=== PATIENT | female | born 1975 | race Asian ===

== ENCOUNTER → 2019-04-24 08:31 | Outpatient (CLI) | payer OTHER, SELFPAY ==
[2019-04-24 10:07] LABS: Alanine Aminotransferase 148 IU/L (9-52); Albumin 4.8 g/dL (3.5-5.0); Albumin Globulin Ratio 1.3 (1.0-2.8); Alkaline Phosphatase 88 U/L (38-126); Aspartate Aminotransferase 105 IU/L (14-36); BUN Creatinine Ratio 26.7 (6-22); Bilirubin Total 0.7 mg/dL (0.2-1.3); Blood Urea Nitrogen 16 mg/dL (7-17); Calcium 9.6 mg/dL (8.4-10.2); Carbon Dioxide 29 mmol/L (22-32); Chloride 102 mmol/L (98-107); Cholesterol 184 mg/dL (140-199); Estimated Glomerular Filt Rate > 60.0 mL/min (>60); Globulin 3.6 g/dL (1.7-4.1); Glucose 99 mg/dL (70-100); HDL Cholesterol 39 mg/dL (40-60); HEMOLYSIS < 15 (0-50); LDL Cholesterol Calculated 103 mg/dL (<100); Potassium 4.6 mmol/L (3.4-5.1); Sodium 142 mmol/L (137-145); Total Protein 8.4 g/dL (6.3-8.2); Triglycerides 209 mg/dL (35-150); Uric Acid 9.2 mg/dL (2.5-6.2)
[2019-04-24 10:14] LABS: Hematocrit 44.6 % (36-46); Hemoglobin 15.2 g/dL (12.0-16.0); Mean Corpuscular Hemoglobin 30.6 PG (26-34); Mean Corpuscular Volume 89.7 fL (80-100); Platelet Count 318 X10^3/uL (150-400); Red Blood Cell Count 4.97 X10^6/uL (4.0-5.2); Red Cell Distribution Width 12.2 % (11.6-14.8); White Blood Cell Count 6.9 X10^3/uL (4.5-11.0)
== END ==
PROVIDERS: PCP Nurse Practitioner Family; Visit Provider Nurse Practitioner Family
DX: Z00.00 Encounter for general adult medical examination without abnormal findings (principal); M10.9 Gout, unspecified; Z13.6 Encounter for screening for cardiovascular disorders
CPT/HCPCS: 36415; 80053; 80061; 84550; 85027

== ENCOUNTER → 2019-04-30 15:05 | Outpatient (CLI) | payer OTHER, SELFPAY ==
--- NOTE | 2019-04-30 15:07 | DI.MG.S_ITS ---
BILATERAL DIGITAL SCREENING MAMMOGRAM 3D/2D WITH CAD: 04/30/2019 CLINICAL: Routine screening. Baseline exam. No prior exams were available for comparison. The tissue of both breasts is heterogeneously dense. This may lower the sensitivity of mammography. Current study was also evaluated with a Computer Aided Detection (CAD) system. No significant masses, calcifications, or other findings are seen in either breast. IMPRESSION: NEGATIVE There is no mammographic evidence of malignancy. A 1 year screening mammogram is recommended. This exam was interpreted at Station ID: [id number]. NOTE: For mammograms, a report in lay terms will be sent to the patient. Approximately 15% of breast malignancies will not be visualized mammographically. In the management of a palpable breast mass, a negative mammogram must not discourage biopsy of a clinically suspicious lesion. Electronically Signed By: Master sharp/estrellita:04/30/2019 17:19:02 letter sent: Normal Exam ACR BI-RADS Category 1: Negative 3341F
== END ==
PROVIDERS: PCP Nurse Practitioner Family; Visit Provider Nurse Practitioner Family
DX: Z12.31 Encounter for screening mammogram for malignant neoplasm of breast (principal)
CPT/HCPCS: 77063; 77067

== ENCOUNTER → 2019-05-28 14:23 | Outpatient (CLI) | payer OTHER, SELFPAY ==
--- NOTE | 2019-05-28 14:25 | DI.US.S_ITS ---
PROCEDURE: US ABDOMEN COMPLETE INDICATIONS: ABNORMAL LIVER ENZYMES TECHNIQUE: Real-time scanning was performed of the abdominal and retroperitoneal organs, with image documentation. COMPARISON: None. FINDINGS: Liver: Liver is diffusely increased in echogenicity. No focal hepatic abnormalities identified. Normal hepatic size. Gallbladder: Phyrgian capped gallbladder; otherwise normal appearance. Biliary ducts: Intrahepatic bile ducts are non-dilated. Extrahepatic bile duct caliber measures 4.0 mm. Normal is 6-7 mm or less in diameter, or 10 mm or less post-cholecystectomy. Pancreas: Visualized portions of the pancreas are sonographically normal. Spleen: Spleen is normal in size and homogeneous in echotexture. Kidneys: Kidneys are normal in size and echotexture. Right kidney measures 10.0 cm long; left kidney measures 10.2 cm long. No hydronephrosis or nephrolithiasis. No solid masses. Aorta: Visualized aorta is normal in caliber at less than 3 cm. Iliacs: Proximal common iliac arteries are normal in caliber at less than 2.5 cm. IVC: Intrahepatic inferior vena cava is patent. Miscellaneous: No free abdominal fluid. IMPRESSION: Increased hepatic echogenicity noted possibly related to hepatic steatosis but other sources of hepatocellular disease cannot be excluded. Recommend clinical correlation. Dictated by: Tha CARY Interpreted: Opal Parikh MD on 05/28/2019 at 16:08 Approved by: Opal Parikh M.D. on 05/28/2019 at 16:35
[2019-05-28 15:27] LABS: TSH w/ Reflex to FT4 2.65 uIU/mL (0.47-4.68)
== END ==
PROVIDERS: PCP Nurse Practitioner Family; Visit Provider Nurse Practitioner Family
DX: R74.8 Abnormal levels of other serum enzymes (principal); N92.1 Excessive and frequent menstruation with irregular cycle
CPT/HCPCS: 36415; 76700; 84443

== ENCOUNTER 2019-08-02 08:45 | Emergency (ER) | payer OTHER, SELFPAY ==
[2019-08-02 09:16] VITALS: BP 123/78; PULSE 115; RESP 24; TEMP 37.6; O2SAT 95
--- NOTE | 2019-08-02 09:19 | DI.RAD.S_ITS ---
PROCEDURE: XR CHEST 2V INDICATIONS: shortness of breath TECHNIQUE: 2 views of the chest were acquired. COMPARISON: None. FINDINGS: Surgical changes and devices: None. Lungs and pleura: Lungs are clear. No pleural effusions or pneumothorax. Mediastinum: Mediastinal contours are normal. Heart size is normal. Bones and chest wall: No suspicious bony abnormalities. Soft tissues appear unremarkable. IMPRESSION: Negative chest. No acute cardiopulmonary process is evident. Dictated by: Hudson Valverde M.D. on 08/02/2019 at 8:54 Approved by: Hudson Valverde M.D. on 08/02/2019 at 9:03
[2019-08-02] MEDS: ALBUTEROL/IPRATROPIUM 3 ML AMPUL INH (09:23)
[2019-08-02 09:24] VITALS: PULSE 113; RESP 18; O2SAT 96
--- NOTE | 2019-08-02 09:36 | ED_ITS ---
HPI - SOB/Dyspnea General Chief Complaint: Shortness of Breath/Dyspnea Stated Complaint: Asthma/headache Time Seen by Provider: 08/02/19 09:17 Source: patient Mode of arrival: Wheelchair Limitations: no limitations History of Present Illness HPI Narrative: Patient is 44-year-old female history of asthma presenting with increasing shortness of breath. It's been ongoing for last 5 days but significantly worse today. She denies any productive cough she does have some chest tightness she overall does not feel well. She has been using her inhaler at home but without any relief. MD Complaint: shortness of breath and cough Onset (ago): day(s) (5) Related Data Home Medications Medication Instructions Recorded Confirmed albuterol sulfate 2.5 mg INHALATION Q4-6H PRN ml 04/16/19 05/21/19 ibuprofen 200 mg tablet 600 mg PO TID PRN tab 04/16/19 05/21/19 Previous Rx's Medication Instructions Recorded albuterol sulfate 90 mcg/actuation 2 inhalation INHALATION Q4-6H PRN 04/16/19 breath activated powder inhaler #1 each colchicine 0.6 mg tablet 0.6 mg PO BID PRN #90 tab 05/07/19 medroxyprogesterone 10 mg tablet See Rx Instructions .ROUTE 06/23/19 .COMPLEX #30 tablet albuterol sulfate 0.63 mg INHALATION QID PRN #75 ml 08/02/19 albuterol sulfate 2 puff INHALATION Q4-6H PRN #8.5 08/02/19 gram prednisone 10 mg PO DAILY #30 tab 08/02/19 Allergies Allergy/AdvReac Type Severity Reaction Status Date / Time acetaminophen [From Tylenol] AdvReac Intermediate Elevated Verified 05/21/19 15:12 liver enzymes allopurinol AdvReac Intermediate Elevated Verified 05/21/19 15:12 liver enzymes Review of Systems Review of Systems Narrative: GENERAL: Denies chills, fatigue, malaise, fever, sweats, travel HEENT: Denies sinus pain, ear pain, sore throat, difficulty swallowing, neck pain RESPIRATORY: See HPI CARDIOVASCULAR: Denies chest pain, palpitations, orthopnea, edema GASTROINTESTINAL: Denies nausea, vomiting, abdominal pain, diarrhea, constipation, melena. : Denies dysuria, frequency, incontinence, hematuria, urinary retention, flank pain. MUSCULOSKELETAL: Denies weakness, joint pain, or bony pain SKIN: No rash, no erythema, no pruritus NEUROLOGIC: Denies weakness, dizziness, headache, numbness, change in speech, confusion PSYCHIATRIC: No concerning psychosocial issues. 12 point review of systems is negative except for those stated above and HPI Patient History Medical History Abnormal liver enzymes (Acute 2017) Acne (Chronic ~2011) BMI 31.0-31.9,adult (Acute) Gout (Acute 2014) Irregular menses (Acute 1990) Migraine (Acute) Mild asthma (Acute 1995) Mixed hyperlipidemia (Acute 04/2019) Surgical History Anesthesia (Resolved) History of toe surgery (Resolved ~2001) Family History Mother Asthma Sister Asthma Grandfather Liver damage Grandmother Parkinson's disease Social History Smoking Status: Never smoker second hand exposure: No alcohol intake: never substance use type: does not use Smoking Status: Never smoker alcohol intake frequency: 0-2 drinks per day Substance Use Type: does not use Exam Initial Vital Signs Initial Vital Signs: Vital Signs Temperature 99.7 F H 08/02/19 09:16 Pulse Rate 115 H 08/02/19 09:16 Respiratory Rate 24 08/02/19 09:16 Blood Pressure 123/78 08/02/19 09:16 Pulse Oximetry 95 08/02/19 09:16 GENERAL: Well-appearing, well-nourished and in no acute distress. HEENT: Head atraumatic,EOMI, pupils reactive CARDIOVASCULAR: Regular rate and rhythm without murmurs, rubs or gallops. RESPIRATORY: Wheezing bilaterally ABDOMEN: Soft, nontender. Normoactive bowel sounds all 4 quadrants. No guarding or rebound. EXTREMITIES: Normal range of motion, no clubbing or edema. Neurovascularly intact NEUROLOGICAL: Alert and oriented x4.Normal gait and speech. Cranial nerves II through XII grossly intact. SKIN: Warm, dry, no laceration, no petechiae, no rashes or lesions. Course Orders Ordered: ED Orders 08/02/19 09:19 XR chest 2V Stat Measure peak expiratory flow ONCE RT Consult Eval and Treat Now 08/02/19 10:05 B Type Natriuretic Peptide Stat Complete Blood Count AUTO DIFF Stat Comprehensive Metabolic Panel Stat Flu test [Influenza A & B (PCR)] Stat Troponin & CK Cardiac Panel Stat Discontinued Medications Albuterol/Ipratropium (Duoneb) 3 ml INH NOW ONE Stop: 08/02/19 09:20 Last Admin: 08/02/19 09:23 Dose: 3 ml Documented by: LUIS Sodium Chloride (Normal Saline 0.9%) 1,000 mls @ 1,000 mls/hr IV BOLUS ONE Stop: 08/02/19 10:35 Last Admin: 08/02/19 10:41 Dose: 1,000 mls/hr Documented by: CLEMENTE Methylprednisolone (Solu-Medrol 125 Mg Vial) 125 mg IV NOW ONE Stop: 08/02/19 09:37 Last Admin: 08/02/19 10:41 Dose: 125 mg Documented by: CLEMENTE Vital Signs Vital signs: Vital Signs - 8 hr 08/02/19 09:16 08/02/19 09:24 08/02/19 11:28 Temperature 99.7 F H Pulse Rate 115 H 113 H Respiratory Rate 24 18 Blood Pressure 123/78 125/69 Pulse Oximetry 95 96 98 MDM - SOB/Dyspnea Lab Data Attestation: I reviewed the patient's lab results. Result diagrams: 08/02/19 10:05 08/02/19 10:05 Labs: Lab Results 08/02/19 08/02/19 08/02/19 Range/Units 10:05 10:05 10:05 WBC 22.2 H (4.5-11.0) X10^3/uL RBC 4.62 (4.0-5.2) X10^6/uL Hgb 14.1 (12.0-16.0) g/dL Hct 41.7 (36-46) % MCV 90.2 (80-100) fL MCH 30.5 (26-34) PG MCHC 33.8 (30-36) % RDW 12.4 (11.6-14.8) % Plt Count 328 (150-400) X10^3/uL Neut % (Auto) 84.1 H (50-75) % Lymph % (Auto) 7.7 L (25-40) % Mariposa % (Auto) 7.1 (3-14) % Eos % (Auto) 0.6 L (2-4) % Baso % (Auto) 0.5 (0-2) % Neut # (Auto) 78687 H (0632-4058) /uL Lymph # (Auto) 1700 (0520-4225) /uL Mariposa # (Auto) 1600 H (0-900) /uL Eos # (Auto) 100 (0-450) /uL Baso # (Auto) 100 (0-100) /uL Sodium 138 (137-145) mmol/L Potassium 4.7 (3.4-5.1) mmol/L Chloride 103 (98-107) mmol/L Carbon Dioxide 23 (22-32) mmol/L BUN 11 (7-17) mg/dL Creatinine 0.50 L (0.52-1.04) mg/dL Estimated GFR > 60.0 (>60) mL/min BUN/Creatinine Ratio 22.0 (6-22) Glucose 120 H (70-100) mg/dL Calcium 9.5 (8.4-10.2) mg/dL Total Bilirubin 1.3 (0.2-1.3) mg/dL AST 77 H (14-36) IU/L ALT 65 H (<35) IU/L Alkaline Phosphatase 89 (38-126) U/L Total Creatine Kinase 221 H (30-135) U/L CK-MB (CK-2) 1.59 (<2.37) ng/mL CK-MB (CK-2) Rel Index 0.7 L (1.5-5.0) % Troponin I < 0.012 (0.01-0.034) ng/mL B-Natriuretic Peptide < 100 (<100) Total Protein 8.8 H (6.3-8.2) g/dL Albumin 4.9 (3.5-5.0) g/dL Globulin 3.9 (1.7-4.1) g/dL Albumin/Globulin Ratio 1.3 (1.0-2.8) Influenza A (RT-PCR) Flu a negative (NEGATIVE) Influenza B (RT-PCR) Flu b negative (NEGATIVE) Imaging Data Chest x-ray: Radiologist's Impression: PROCEDURE: XR CHEST 2V INDICATIONS: shortness of breath TECHNIQUE: 2 views of the chest were acquired. COMPARISON: None. FINDINGS: Surgical changes and devices: None. Lungs and pleura: Lungs are clear. No pleural effusions or pneumothorax. Mediastinum: Mediastinal contours are normal. Heart size is normal. Bones and chest wall: No suspicious bony abnormalities. Soft tissues appear unremarkable. IMPRESSION: Negative chest. No acute cardiopulmonary process is evident. Dictated by: Hudson Valverde M.D. on 08/02/2019 at 8:54 ECG Data Attestation: I personally reviewed and interpreted this ECG as follows: Prior ECG tracings: not available for review Interpretation: Sinus rhythm noted rate 110 and p.r. interval 171 QRS 83 his QTC 384 T-wave inversion noted in lead 2 3 and AVF no priors to compare Q-wave noted in lead 3 MDM Narrative Medical decision making narrative: The patient has obvious wheezing history of asthma her breathing did improve with albuterol. Likely asthma exacerbation. She does have leukocytosis but is afebrile, at this time no indication for antibiotics chest x-ray is clear. Discharge Plan Departure Patient Disposition: Home Clinical Impression: Asthma exacerbation Qualifiers: Asthma severity: moderate Asthma persistence: persistent Qualified Code(s): J45.41 - Moderate persistent asthma with (acute) exacerbation Discharge Date/Time: 08/02/19 11:28 Instructions: DI for Asthma -- Adult Activity Restrictions/Additional Instructions: *You have been diagnosed with asthma exacerbation with viral infection *What to do: At this time no indication for antibiotics *Continue to take medications as directed--> SENT TO [facility] Albuterol inhaler or nebulizer every 4 hours if needed for coughing or shortness of Prednisone 40 mg once a day for 3 days, 30 mg once a day for 3 days, 20 mg once a day for 3 days and 10 mg once a day for 3 days *Follow up with your primary care provider in 2-3 days *Return to ER if you should have increasing chest pain shortness of breath, or any new, worsening or concerning symptoms Prescriptions: New prednisone 10 mg tablet 10 mg PO DAILY Qty: 30 RF: 0 albuterol sulfate 0.63 mg/3 mL solution for nebulization 0.63 mg INHALATION QID PRN (Reason: shortness of breath or wheezing) Qty: 75 RF: 0 albuterol sulfate 90 mcg/actuation HFA aerosol inhaler 2 puff INHALATION Q4-6H PRN (Reason: shortness of breath or wheezing) Qty: 8.5 RF: 0 No Action medroxyprogesterone 10 mg tablet See Rx Instructions .ROUTE .COMPLEX Qty: 30 RF: 3 albuterol sulfate 2.5 mg /3 mL (0.083 %) solution for nebulization 2.5 mg INHALATION Q4-6H PRNRF: 0 ibuprofen 200 mg tablet 600 mg PO TID PRNRF: 0 albuterol sulfate 90 mcg/actuation aerosol powdr breath activated 2 inhalation INHALATION Q4-6H PRN (Reason: shortness of breath or wheezing) Qty: 1 RF: 3 colchicine 0.6 mg tablet 0.6 mg PO BID PRN (Reason: gout flare) Qty: 90 RF: 0 Referrals: Richelle Rosario ARNP [Primary Care Provider] -
[2019-08-02 10:21] LABS: Add Manual Diff / Slide Review NO; Basophils Absolute Auto 100 /uL (0-100); Basophils Percent Auto 0.5 % (0-2); Eosinophils Absolute Auto 100 /uL (0-450); Eosinophils Percent Auto 0.6 % (2-4); Hematocrit 41.7 % (36-46); Hemoglobin 14.1 g/dL (12.0-16.0); Lymphocytes Absolute Auto 1700 /uL (1100-4500); Lymphocytes Percent Auto 7.7 % (25-40); Mean Corpuscular HGB Conc 33.8 % (30-36); Mean Corpuscular Hemoglobin 30.5 PG (26-34); Mean Corpuscular Volume 90.2 fL (80-100); Monocytes Absolute Auto 1600 /uL (0-900); Monocytes Percent Auto 7.1 % (3-14); Neutrophils Absolute Auto 18600 /uL (1500-7000); Neutrophils Percent Auto 84.1 % (50-75); Platelet Count 328 X10^3/uL (150-400); Red Blood Cell Count 4.62 X10^6/uL (4.0-5.2); Red Cell Distribution Width 12.4 % (11.6-14.8); White Blood Cell Count 22.2 X10^3/uL (4.5-11.0)
[2019-08-02 10:40] LABS: Alanine Aminotransferase 65 IU/L (<35); Albumin 4.9 g/dL (3.5-5.0); Albumin Globulin Ratio 1.3 (1.0-2.8); Alkaline Phosphatase 89 U/L (38-126); Aspartate Aminotransferase 77 IU/L (14-36); Bilirubin Total 1.3 mg/dL (0.2-1.3); Blood Urea Nitrogen 11 mg/dL (7-17); Calcium 9.5 mg/dL (8.4-10.2); Carbon Dioxide 23 mmol/L (22-32); Chloride 103 mmol/L (98-107); Creatine Kinase 221 U/L (30-135); Estimated Glomerular Filt Rate > 60.0 mL/min (>60); Globulin 3.9 g/dL (1.7-4.1); Glucose 120 mg/dL (70-100); HEMOLYSIS 141 (0-50); Potassium 4.7 mmol/L (3.4-5.1); Sodium 138 mmol/L (137-145); Total Protein 8.8 g/dL (6.3-8.2)
[2019-08-02] MEDS: SODIUM CHLORIDE 0.9% 1,000 ML 1000 ML IV (10:41)
[2019-08-02] MEDS: methylPREDNISolone 125 MG/2 ML VIAL IV (10:41)
[2019-08-02 10:48] LABS: Troponin I < 0.012 ng/mL (0.01-0.034)
[2019-08-02 10:50] LABS: B Type Natriuretic Peptide < 100 (<100)
[2019-08-02 10:56] LABS: CKMB % Relative Index 0.7 % (1.5-5.0); Creatine Kinase MB 1.59 ng/mL (<2.37)
[2019-08-02 11:28] VITALS: BP 125/69; O2SAT 98
[2019-08-02 11:49] LABS: Influenza A - CEPHEID Flu A NEGATIVE (NEGATIVE); Influenza B - CEPHEID Flu B NEGATIVE (NEGATIVE)
== END 2019-08-02 11:28 | disposition home or self-care (01) ==
PROVIDERS: Emergency Provider Emergency Medicine; PCP Nurse Practitioner Family
DX: J45.41 Moderate persistent asthma with (acute) exacerbation (principal); R07.9 Chest pain, unspecified
CPT/HCPCS: 36415; 71046; 80053; 82550; 82553; 83880; 84484; 85025; 87502; 93005; 94150; 94640; 96361; 96374; 99284; 99285; J2930

== ENCOUNTER → 2019-08-20 15:44 | Outpatient (CLI) | payer OTHER, SELFPAY ==
[2019-08-20 16:06] LABS: Add Manual Diff / Slide Review NO; Basophils Absolute Auto 100 /uL (0-100); Basophils Percent Auto 1.2 % (0-2); Eosinophils Absolute Auto 400 /uL (0-450); Eosinophils Percent Auto 3.6 % (2-4); Hematocrit 43.2 % (36-46); Hemoglobin 14.7 g/dL (12.0-16.0); Lymphocytes Absolute Auto 2800 /uL (1100-4500); Lymphocytes Percent Auto 22.9 % (25-40); Mean Corpuscular HGB Conc 34.1 % (30-36); Mean Corpuscular Hemoglobin 31.2 PG (26-34); Mean Corpuscular Volume 91.3 fL (80-100); Monocytes Absolute Auto 1300 /uL (0-900); Monocytes Percent Auto 10.9 % (3-14); Neutrophils Absolute Auto 7500 /uL (1500-7000); Neutrophils Percent Auto 61.4 % (50-75); Platelet Count 348 X10^3/uL (150-400); Red Blood Cell Count 4.72 X10^6/uL (4.0-5.2); White Blood Cell Count 12.2 X10^3/uL (4.5-11.0)
[2019-08-20 16:36] LABS: Alanine Aminotransferase 48 IU/L (<35); Albumin 4.6 g/dL (3.5-5.0); Albumin Globulin Ratio 1.4 (1.0-2.8); Alkaline Phosphatase 106 U/L (38-126); Aspartate Aminotransferase 43 IU/L (14-36); BUN Creatinine Ratio 23.3 (6-22); Bilirubin Total 0.6 mg/dL (0.2-1.3); Blood Urea Nitrogen 14 mg/dL (7-17); Carbon Dioxide 28 mmol/L (22-32); Chloride 103 mmol/L (98-107); Estimated Glomerular Filt Rate > 60.0 mL/min (>60); Globulin 3.3 g/dL (1.7-4.1); Glucose 71 mg/dL (70-100); HEMOLYSIS < 15 (0-50); Potassium 4.4 mmol/L (3.4-5.1); Sodium 138 mmol/L (137-145); Total Protein 7.9 g/dL (6.3-8.2)
[2019-08-22 16:03] LABS: Hep C Virus Ab w/Reflex Quant NEGATIVE s/c (NEGATIVE)
[2019-08-24 15:21] LABS: Hepatitis A Antibody IgM Nonreactive (Nonreactive)
== END ==
PROVIDERS: PCP Nurse Practitioner Family; Visit Provider Nurse Practitioner Family
DX: D72.829 Elevated white blood cell count, unspecified (principal); R74.8 Abnormal levels of other serum enzymes
CPT/HCPCS: 36415; 80053; 85025; 86709; 86803

== ENCOUNTER → 2020-01-03 08:06 | Outpatient (CLI) | payer OTHER, SELFPAY ==
[2020-01-03 08:32] LABS: Hemoglobin 15.1 g/dL (12.0-16.0); Mean Corpuscular HGB Conc 33.5 % (30-36); Mean Corpuscular Hemoglobin 29.7 PG (26-34); Mean Corpuscular Volume 88.6 fL (80-100); Platelet Count 311 X10^3/uL (150-400); Red Blood Cell Count 5.07 X10^6/uL (4.0-5.2); Red Cell Distribution Width 12.1 % (11.6-14.8); White Blood Cell Count 9.4 X10^3/uL (4.5-11.0)
[2020-01-03 08:54] LABS: Alanine Aminotransferase 175 IU/L (<35); Albumin 4.7 g/dL (3.5-5.0); Albumin Globulin Ratio 1.3 (1.0-2.8); Alkaline Phosphatase 102 U/L (38-126); Aspartate Aminotransferase 139 IU/L (14-36); BUN Creatinine Ratio 26.7 (6-22); Bilirubin Total 0.5 mg/dL (0.2-1.3); Blood Urea Nitrogen 16 mg/dL (7-17); Calcium 9.8 mg/dL (8.4-10.2); Carbon Dioxide 25 mmol/L (22-32); Chloride 102 mmol/L (98-107); Estimated Glomerular Filt Rate > 60.0 mL/min (>60); Globulin 3.6 g/dL (1.7-4.1); Glucose 110 mg/dL (70-100); HEMOLYSIS < 15 (0-50); Potassium 4.5 mmol/L (3.4-5.1); Sodium 136 mmol/L (137-145); Total Protein 8.3 g/dL (6.3-8.2)
== END ==
PROVIDERS: PCP Nurse Practitioner Family; Referring Provider Nurse Practitioner Family; Visit Provider Nurse Practitioner Family
DX: R74.8 Abnormal levels of other serum enzymes (principal); D72.829 Elevated white blood cell count, unspecified
CPT/HCPCS: 36415; 80053; 85027

== ENCOUNTER → 2020-01-05 16:00 | Outpatient (CLI) | payer OTHER, SELFPAY ==
[2020-01-05 16:17] LABS: Cholesterol 199 mg/dL (140-199); HDL Cholesterol 37 mg/dL (40-60); LDL Cholesterol Calculated 107 mg/dL (<100); Triglycerides 274 mg/dL (35-150)
== END ==
PROVIDERS: PCP Nurse Practitioner Family; Visit Provider Nurse Practitioner Family
DX: Z13.6 Encounter for screening for cardiovascular disorders (principal); R73.01 Impaired fasting glucose; E78.2 Mixed hyperlipidemia
CPT/HCPCS: 80061; 83036

== ENCOUNTER → 2020-03-15 10:55 | Outpatient (CLI) | payer OTHER, SELFPAY ==
[2020-03-16 06:45] LABS: COVID19 Sendout Not Detected (Not Detect)
== END ==
PROVIDERS: PCP Nurse Practitioner Family; Visit Provider Nurse Practitioner
DX: Z11.59 Encounter for screening for other viral diseases (principal)
CPT/HCPCS: 87635

== ENCOUNTER → 2020-04-19 10:28 | Outpatient (CLI) | payer OTHER, SELFPAY ==
[2020-04-19 11:55] LABS: Cholesterol 202 mg/dL (140-199); HDL Cholesterol 39 mg/dL (40-60); Triglycerides 417 mg/dL (35-150)
== END ==
PROVIDERS: PCP Nurse Practitioner Family; Referring Provider Nurse Practitioner Family; Visit Provider Internal Medicine Cardiovascular Disease
DX: Z13.6 Encounter for screening for cardiovascular disorders (principal); E78.1 Pure hyperglyceridemia; E78.2 Mixed hyperlipidemia
CPT/HCPCS: 36415; 80061

== ENCOUNTER → 2020-04-20 08:09 | Outpatient (CLI) | payer OTHER, SELFPAY ==
[2020-04-21 20:01] LABS: COVID19 Sendout Not Detected (Not Detect)
== END ==
PROVIDERS: PCP Nurse Practitioner Family; Visit Provider Physician Assistant
DX: Z11.59 Encounter for screening for other viral diseases (principal)
CPT/HCPCS: 87635

== ENCOUNTER → 2020-07-14 09:59 | Outpatient (CLI) | payer OTHER, SELFPAY ==
[2020-07-14 11:01] LABS: Cholesterol 215 mg/dL (140-199); HDL Cholesterol 50 mg/dL (40-60); LDL Cholesterol Calculated 129 mg/dL (<100); Triglycerides 181 mg/dL (35-150)
== END ==
PROVIDERS: PCP Nurse Practitioner Family; Referring Provider Nurse Practitioner Family; Visit Provider Nurse Practitioner Family
DX: E78.2 Mixed hyperlipidemia (principal); Z13.6 Encounter for screening for cardiovascular disorders
CPT/HCPCS: 36415; 80061

== ENCOUNTER → 2020-08-11 11:57 | Outpatient (CLI) | payer OTHER, SELFPAY ==
--- NOTE | 2020-08-11 | DI.MG.S_ITS ---
BILATERAL DIGITAL SCREENING MAMMOGRAM 3D/2D WITH CAD: 08/11/2020 CLINICAL: Routine screening. Comparison is made to exam dated: 04/30/2019 [facility]. The tissue of both breasts is heterogeneously dense. This may lower the sensitivity of mammography. Current study was also evaluated with a Computer Aided Detection (CAD) system. No significant masses, calcifications, or other findings are seen in either breast. There has been no significant interval change. IMPRESSION: NEGATIVE There is no mammographic evidence of malignancy. A 1 year screening mammogram is recommended. This exam was interpreted at Station ID: [id number]. NOTE: For mammograms, a report in lay terms will be sent to the patient. Approximately 15% of breast malignancies will not be visualized mammographically. In the management of a palpable breast mass, a negative mammogram must not discourage biopsy of a clinically suspicious lesion. Electronically Signed By: Hipolito bird/estrellita:08/11/2020 13:26:21 letter sent: Normal Exam ACR BI-RADS Category 1: Negative 3341F
== END ==
PROVIDERS: PCP Nurse Practitioner Family; Referring Provider Nurse Practitioner Family; Visit Provider Nurse Practitioner Family
DX: Z12.31 Encounter for screening mammogram for malignant neoplasm of breast (principal)
CPT/HCPCS: 77063; 77067

== ENCOUNTER → 2020-12-15 08:34 | Outpatient (CLI) | payer OTHER, SELFPAY ==
[2020-12-15 09:22] LABS: Hemoglobin 13.6 g/dL (12.0-16.0); Mean Corpuscular HGB Conc 33.3 % (30-36); Mean Corpuscular Hemoglobin 30.2 PG (26-34); Mean Corpuscular Volume 90.8 fL (80-100); Platelet Count 315 X10^3/uL (150-400); Red Blood Cell Count 4.51 X10^6/uL (4.0-5.2); Red Cell Distribution Width 12.2 % (11.6-14.8); White Blood Cell Count 8.2 X10^3/uL (4.5-11.0)
[2020-12-15 09:53] LABS: Alanine Aminotransferase 152 IU/L (<35); Albumin 4.2 g/dL (3.5-5.0); Albumin Globulin Ratio 1.3 (1.0-2.8); Alkaline Phosphatase 93 U/L (38-126); Aspartate Aminotransferase 130 IU/L (14-36); Bilirubin Total 0.7 mg/dL (0.2-1.3); Blood Urea Nitrogen 18 mg/dL (7-17); Calcium 9.3 mg/dL (8.4-10.2); Carbon Dioxide 25 mmol/L (22-32); Chloride 104 mmol/L (98-107); Cholesterol 201 mg/dL (140-199); Estimated Glomerular Filt Rate > 60.0 mL/min (>60); Globulin 3.3 g/dL (1.7-4.1); Glucose 97 mg/dL (70-100); HDL Cholesterol 44 mg/dL (40-60); LDL Cholesterol Calculated 108 mg/dL (<100); Sodium 136 mmol/L (137-145); Total Protein 7.5 g/dL (6.3-8.2); Triglycerides 247 mg/dL (35-150)
[2020-12-15 09:57] LABS: HEMOLYSIS 61 (0-50)
[2020-12-15 09:58] LABS: Potassium 5.1 mmol/L (3.4-5.1)
== END ==
PROVIDERS: PCP Nurse Practitioner Family; Referring Provider Nurse Practitioner Family; Visit Provider Nurse Practitioner Family
DX: J45.40 Moderate persistent asthma, uncomplicated (principal); R74.8 Abnormal levels of other serum enzymes; E78.2 Mixed hyperlipidemia
CPT/HCPCS: 36415; 80053; 80061; 85027

== ENCOUNTER → 2021-04-19 15:05 | Outpatient (CLI) | payer OTHER, SELFPAY ==
[2021-04-19 16:16] LABS: COVID19 -Nasal RAPID Negative (Negative)
== END ==
PROVIDERS: PCP Nurse Practitioner Family; Visit Provider Specialist
DX: Z01.812 Encounter for preprocedural laboratory examination (principal); Z20.822 Contact with and (suspected) exposure to COVID-19
CPT/HCPCS: 87635

== ENCOUNTER 2021-04-20 09:53 | Day surgery (SDC) | payer OTHER, SELFPAY ==
[2021-04-19 07:42] VITALS: BMI 30.5
[2021-04-20] VITALS (8 sets, daily range): BP systolic 87–122; BP diastolic 50–83; PULSE 57–71; RESP 8–20; TEMP 36.1–36.8; O2SAT 94–97; BMI 30.5
--- NOTE | 2021-04-20 | PATH_ITS ---
[facility] Accession Number: [id number] . 01 Material submitted: . PART A: cervix - EXTERNAL CERVICAL OS PART B: cervix - INTERNAL CERVICAL OS PART C: endocervix - ENDOCERVICAL CURETTINGS . 01 Clinical history: . LEEP . 01 Diagnosis: A. External Cervical Os, LEEP: Cervical transformation zone with focal involvement by high-grade squamous intraepithelial lesion (MATT-2). Margins appear free of neoplasm. No evidence of malignancy. . B. Internal Cervical Os, LEEP: Endocervical mucosa with no diagnostic abnormality. No evidence of squamous intraepithelial lesion or malignancy. . C. Endocervix, Curettage: Endocervical and scant squamous mucosa with no diagnostic abnormality. Weakly proliferative endometrium with no diagnostic abnormality. No evidence of neoplasm. [facility] 04/25/2021 1450 Local . 01 Electronically signed: . Toan Nettles MD, PhD, Pathologist NPI- [id number] . 01 Gross description: . A. The specimen is received in formalin, labeled external cervical os, and consists of a 2.5 x 1.7 cm, cai-pink, smooth portion of ectocervix excised to a depth of 0.3 cm, with a 0.6 x 0.1 cm os. The endocervical margin is inked blue. The ectocervical margin is inked black. The specimen is radially sectioned and entirely submitted in cassettes A1 A4. B. The specimen is received in formalin, labeled internal cervical os, and consists of three cai fragments of soft tissue measuring 2.0 x 1.0 x 0.3 cm in aggregate. The margins are inked blue. The fragments are serially sectioned, and the specimen is entirely submitted in cassettes B1-B2. C. The specimen is received in formalin, labeled endocervical curettings, and consists of multiple cai-pink fragments of soft tissue admixed with mucus and clotted blood measuring 2.0 x 1.0 x 0.2 cm in aggregate. The specimen is filtered and entirely submitted in cassettes B1. (EA:[id number]) /FRR 04/21/2021 1406 Local . 01 Microscopic: . A) A p16 immunohistochemical stain is performed (Block A3) to evaluate for a high risk HPV driven neoplasm, and highlights a small focus of diffuse nuclear and cytoplasmic block-like staining. A control stain shows appropriate reactivity. . * This test was developed and its performance characteristics determined by [facility]. It has not been cleared or approved by the U.S. Food and Drug Administration. The FDA has determined that such clearance or approval is not necessary. This test is used for clinical purposes. It should not be regarded as investigational or for research. . 01 Pathologist provided ICD-10: N87.1 . 01 CPT . 193268, 503656, 657167, S17550 Performed at: 01 [facility] [address] [place] [address], [place], [place] [id number] MD Hipolito Bell MD Phone: [phone]
[2021-04-20] MEDS: LACTATED RINGERS 1,000 ML 100 ML IV (10:53)
--- NOTE | 2021-04-20 11:38 | PM.PREOP ---
Pre-operative Note COVID-19 COVID-19 status: Negative Result date/Date tested (Pos, Neg/Pending): 04/19/21 Interval Note History & Physical reviewed/Exam performed by Physician: Yes Changes to H&P: No
--- NOTE | 2021-04-20 12:17 | SUR.OPER ---
Lithotomy on padded OR bed, head on pillow, arms secured on padded arm boards at <90 degrees abduction. Legs secured in padded yellow fins stirrups.
[2021-04-20] MEDS: BUPIVACAINE 0.5% (PF) VIAL 30 ML INJ (12:21)
[2021-04-20] MEDS: POTASSIUM IODIDE/IODINE 473 ML SOLUTION TOP (12:21)
--- NOTE | 2021-04-20 12:49 | PM.OP.1 ---
Operative Date/Time/Diagnoses Date of procedure: 04/20/21 Time of procedure: 12:49 Pre-op diagnosis: MATT 2 of the cervix on colpo directed biopsies with positive high-risk HPV Post-op diagnosis: same Procedure & Clinicians Procedure: LEEP Same procedure as scheduled: Yes Indications: MATT 2 the cervix by colpo directed biopsies Surgeon: Vee Vazquez Click Yes if Unassisted: Yes Anesthesia Type: General Operative Notes Findings: No staining of the cervix. Closure Type: not applicable Specimen(s): other (External biopsy, internal biopsy, ECC) Estimated Blood Loss (mL): 1 Blood products transfused: none Procedure in detail: Patient was brought to the operating room where she underwent general anesthesia. She was placed in low Yellofin stirrups and draped. A coated speculum was placed in the vagina. The cervix was stained with Lugol's. The cervix was injected with 0.25% Marcaine with epinephrine. A single-tooth neck and placed on the anterior lip of the cervix. The LEEP set at 80 w of cutting was used to remove the entire squamocolumnar junction. A deep resection was performed. ECC performed. The base of the biopsy and external to the biopsy was treated with cautery. Monsel's was placed. There was no active bleeding. Patient went to recovery room in good condition. Counts of instruments and sponges were correct. 3 specimens were sent to pathology. Complications: none Post-operative Condition: stable Disposition: same day surgery Plan for aftercare: Treatment and follow-up based on biopsy results
--- NOTE | 2021-04-20 15:40 | SUR.PHASEI ---
Late entry: Pt arrived with oral airway, placed on nasal cannula 02 and once out at 1350 02 d/c'ed. Pt woke, denied pain tolerated ice chips, to OPD stable baldev pad c/d/i.
== END 2021-04-20 13:48 | disposition home or self-care (01) ==
PROVIDERS: PCP Nurse Practitioner Family; Referring Provider Specialist; Visit Provider Specialist
PROC: 0UBC7ZZ Excision of Cervix, Via Natural or Artificial Opening (ICD-10-PCS; CPT 57522; principal; 2021-04-20 11:45)
DX: N87.1 Moderate cervical dysplasia (principal); E78.2 Mixed hyperlipidemia; K76.0 Fatty (change of) liver, not elsewhere classified; J45.40 Moderate persistent asthma, uncomplicated; G47.33 Obstructive sleep apnea (adult) (pediatric)
CPT/HCPCS: 57460; J1885; J2250; J2704; J3010

== ENCOUNTER → 2021-07-27 07:59 | Outpatient (CLI) | payer OTHER, SELFPAY ==
[2021-07-27 08:39] LABS: Hematocrit 40.9 % (36-46); Hemoglobin 13.9 g/dL (12.0-16.0); Mean Corpuscular HGB Conc 34.1 % (30-36); Mean Corpuscular Hemoglobin 30.6 PG (26-34); Mean Corpuscular Volume 89.8 fL (80-100); Platelet Count 298 X10^3/uL (150-400); Red Blood Cell Count 4.56 X10^6/uL (4.0-5.2); Red Cell Distribution Width 12.2 % (11.6-14.8); White Blood Cell Count 7.7 X10^3/uL (4.5-11.0)
[2021-07-27 08:51] LABS: Alanine Aminotransferase 134 IU/L (<35); Albumin 4.3 g/dL (3.5-5.0); Albumin Globulin Ratio 1.2 (1.0-2.8); Alkaline Phosphatase 87 U/L (38-126); Aspartate Aminotransferase 126 IU/L (14-36); Bilirubin Total 0.8 mg/dL (0.2-1.3); Blood Urea Nitrogen 13 mg/dL (7-17); Calcium 9.2 mg/dL (8.4-10.2); Carbon Dioxide 25 mmol/L (22-32); Chloride 107 mmol/L (98-107); Estimated Glomerular Filt Rate > 60.0 mL/min (>60); Globulin 3.6 g/dL (1.7-4.1); Glucose 111 mg/dL (70-100); HEMOLYSIS < 15 (0-50); Potassium 4.5 mmol/L (3.4-5.1); Sodium 138 mmol/L (137-145); Total Protein 7.9 g/dL (6.3-8.2); Uric Acid 8.4 mg/dL (2.5-6.2)
== END ==
PROVIDERS: PCP Nurse Practitioner Family; Referring Provider Nurse Practitioner Family; Visit Provider Nurse Practitioner Family
DX: Z00.00 Encounter for general adult medical examination without abnormal findings (principal); R74.8 Abnormal levels of other serum enzymes; K76.0 Fatty (change of) liver, not elsewhere classified; M1A.9XX0 Chronic gout, unspecified, without tophus (tophi)
CPT/HCPCS: 36415; 80053; 84550; 85027

== ENCOUNTER → 2021-09-05 17:31 | Outpatient (CLI) | payer OTHER, SELFPAY ==
--- NOTE | 2021-09-05 17:32 | DI.MG.S_ITS ---
BILATERAL DIGITAL SCREENING MAMMOGRAM 3D/2D WITH CAD: 09/06/2021 CLINICAL: Routine screening. Comparison is made to exams dated: 09/05/2021 mammogram, 08/11/2020 mammogram, and 04/30/2019 mammogram - [facility]. The tissue of both breasts is heterogeneously dense. This may lower the sensitivity of mammography. Current study was also evaluated with a Computer Aided Detection (CAD) system. No significant masses, calcifications, or other findings are seen in either breast. There has been no significant interval change. IMPRESSION: NEGATIVE There is no mammographic evidence of malignancy. A 1 year screening mammogram is recommended. This exam was interpreted at Station ID: [id number]. NOTE: For mammograms, a report in lay terms will be sent to the patient. Approximately 15% of breast malignancies will not be visualized mammographically. In the management of a palpable breast mass, a negative mammogram must not discourage biopsy of a clinically suspicious lesion. Electronically Signed By: Cory hooks/estrellita:09/06/2021 15:44:05 letter sent: Normal Exam ACR BI-RADS Category 1: Negative 3341F
== END ==
PROVIDERS: PCP Nurse Practitioner Family; Referring Provider Nurse Practitioner Family; Visit Provider Nurse Practitioner Family
DX: Z12.31 Encounter for screening mammogram for malignant neoplasm of breast (principal)
CPT/HCPCS: 77063; 77067

== ENCOUNTER → 2021-10-26 07:32 | Outpatient (CLI) | payer OTHER, SELFPAY ==
[2021-10-26 08:57] LABS: Cholesterol 200 mg/dL (140-199); HDL Cholesterol 46 mg/dL (40-60); LDL Cholesterol Calculated 114 mg/dL (<100); Triglycerides 201 mg/dL (35-150)
== END ==
PROVIDERS: PCP Nurse Practitioner Family; Referring Provider Nurse Practitioner Family; Visit Provider Nurse Practitioner Family
DX: E78.2 Mixed hyperlipidemia (principal); R73.01 Impaired fasting glucose; Z13.6 Encounter for screening for cardiovascular disorders
CPT/HCPCS: 36415; 80061; 83036

== ENCOUNTER → 2021-11-07 08:11 | Outpatient (CLI) | payer OTHER, SELFPAY ==
[2021-11-07 09:01] LABS: Alanine Aminotransferase 125 IU/L (<35); Albumin 4.5 g/dL (3.5-5.0); Albumin Globulin Ratio 1.3 (1.0-2.8); Alkaline Phosphatase 95 U/L (38-126); Aspartate Aminotransferase 82 IU/L (14-36); Bilirubin Total 0.4 mg/dL (0.2-1.3); Bilirubin Unconjugated 0.4 mg/dL (0.0-1.1); Globulin 3.6 g/dL (1.7-4.1); HEMOLYSIS < 15 (0-50); Total Protein 8.1 g/dL (6.3-8.2)
== END ==
PROVIDERS: PCP Nurse Practitioner Family; Referring Provider Nurse Practitioner Family; Visit Provider Nurse Practitioner Family
DX: K76.0 Fatty (change of) liver, not elsewhere classified (principal)
CPT/HCPCS: 36415; 80076

== ENCOUNTER → 2023-01-17 07:10 | Outpatient (CLI) | payer OTHER, SELFPAY ==
[2023-01-17 09:31] LABS: Alanine Aminotransferase 149 IU/L (<35); Albumin 4.2 g/dL (3.5-5.0); Albumin Globulin Ratio 1.1 (1.0-2.8); Alkaline Phosphatase 104 U/L (38-126); Aspartate Aminotransferase 94 IU/L (14-36); BUN Creatinine Ratio 21.3 (6-22); Bilirubin Total 0.6 mg/dL (0.2-1.3); Blood Urea Nitrogen 13 mg/dL (7-17); Calcium 8.9 mg/dL (8.4-10.2); Carbon Dioxide 23 mmol/L (22-32); Chloride 103 mmol/L (98-107); Cholesterol 188 mg/dL (140-199); Estimated Glomerular Filt Rate > 60 mL/min (>60); Globulin 3.9 g/dL (1.7-4.1); Glucose 115 mg/dL (70-100); HDL Cholesterol 37 mg/dL (40-60); HEMOLYSIS 28 (0-50); LDL Cholesterol Calculated 101 mg/dL (<100); Potassium 4.5 mmol/L (3.4-5.1); Sodium 135 mmol/L (137-145); Total Protein 8.1 g/dL (6.3-8.2); Triglycerides 250 mg/dL (35-150)
[2023-01-17 09:46] LABS: Vitamin D 25 Hydroxy (D3) 28.1 ng/mL (30.0-100.0)
[2023-01-17 10:02] LABS: TSH w/ Reflex to FT4 3.26 uIU/mL (0.47-4.68)
[2023-01-18 05:25] LABS: Labcorp Hemoglobin (Hb) A1c 6.5 % (4.8-5.6)
== END ==
PROVIDERS: PCP Family Medicine; Referring Provider Family Medicine; Visit Provider Family Medicine
DX: E03.9 Hypothyroidism, unspecified (principal); E55.9 Vitamin D deficiency, unspecified; E78.5 Hyperlipidemia, unspecified; I10 Essential (primary) hypertension; R73.9 Hyperglycemia, unspecified
CPT/HCPCS: 36415; 80053; 80061; 82306; 83036; 84443

== ENCOUNTER → 2023-01-24 11:10 | Outpatient (CLI) | payer OTHER, SELFPAY ==
--- NOTE | 2023-01-24 | DI.MG.S_ITS ---
BILATERAL DIGITAL SCREENING MAMMOGRAM 3D/2D WITH CAD: 01/24/2023 CLINICAL: Routine screening. Comparison is made to exams dated: 09/05/2021 mammogram, 09/05/2021 mammogram, 04/30/2019 mammogram, and 08/11/2020 mammogram - [facility]. Both breasts are heterogeneously dense, which may obscure small masses (category c / 51-75% glandular tissue). Current study was also evaluated with a Computer Aided Detection (CAD) system. No significant masses, calcifications, or other findings are seen in either breast. There has been no significant interval change. IMPRESSION: NEGATIVE There is no mammographic evidence of malignancy. A 1 year screening mammogram is recommended. Based on the Tyrer Cuzick model (a risk assessment model) the patient's lifetime risk is 13.4% and her 10 year risk is 2.7%. According to the ACR, ACS, and NCCN guidelines, an annual breast MRI exam along with mammogram is recommended if the patient's lifetime risk is 20% or greater. This exam was interpreted at Station ID: [id number]. NOTE: For mammograms, a report in lay terms will be sent to the patient. Approximately 15% of breast malignancies will not be visualized mammographically. In the management of a palpable breast mass, a negative mammogram must not discourage biopsy of a clinically suspicious lesion. Electronically Signed By: Cory hooks/estrellita:01/24/2023 17:15:39 letter sent: Normal Exam ACR BI-RADS Category 1: Negative 3341F
== END ==
PROVIDERS: PCP Family Medicine; Referring Provider Family Medicine; Visit Provider Family Medicine
DX: Z12.31 Encounter for screening mammogram for malignant neoplasm of breast (principal)
CPT/HCPCS: 77063; 77067

== ENCOUNTER → 2023-04-18 07:21 | Outpatient (CLI) | payer OTHER, SELFPAY ==
[2023-04-18 08:54] LABS: Hemoglobin A1C% w Est Avg Glu 5.7 % (4.0-6.0)
[2023-04-18 09:09] LABS: Alanine Aminotransferase 65 IU/L (<35); Albumin 4.2 g/dL (3.5-5.0); Albumin Globulin Ratio 1.4 (1.0-2.8); Alkaline Phosphatase 72 U/L (38-126); Aspartate Aminotransferase 62 IU/L (14-36); Bilirubin Total 0.4 mg/dL (0.2-1.3); Blood Urea Nitrogen 13 mg/dL (7-17); Calcium 9.6 mg/dL (8.4-10.2); Carbon Dioxide 24 mmol/L (22-32); Chloride 103 mmol/L (98-107); Cholesterol 114 mg/dL (140-199); Estimated Glomerular Filt Rate > 60 mL/min (>60); Globulin 3.1 g/dL (1.7-4.1); Glucose 114 mg/dL (70-100); HDL Cholesterol 47 mg/dL (40-60); HEMOLYSIS < 15 (0-50); LDL Cholesterol Calculated 40 mg/dL (<100); Potassium 4.4 mmol/L (3.4-5.1); Sodium 137 mmol/L (137-145); Total Protein 7.3 g/dL (6.3-8.2); Triglycerides 134 mg/dL (35-150); Uric Acid 7.6 mg/dL (2.5-6.2)
[2023-04-18 09:12] LABS: High Sensitivity CRP - Cardiac 2.4 mg/L (1.0-3.0)
[2023-04-18 09:50] LABS: Microalbumi Creatinin Ratio Ur 36.8 ug/mg CR (<30); Microalbumin Urine Random 1.4 mg/dL (0-1.6)
== END ==
PROVIDERS: PCP Family Medicine; Referring Provider Family Medicine; Visit Provider Family Medicine
DX: E66.9 Obesity, unspecified (principal); E11.9 Type 2 diabetes mellitus without complications; M10.9 Gout, unspecified; E55.9 Vitamin D deficiency, unspecified; E88.81 Metabolic syndrome and other insulin resistance; K76.0 Fatty (change of) liver, not elsewhere classified; E78.2 Mixed hyperlipidemia
CPT/HCPCS: 36415; 80053; 80061; 82043; 82570; 83036; 84550; 86140

== ENCOUNTER → 2023-05-31 08:35 | Outpatient (CLI) | payer OTHER, SELFPAY ==
[2023-05-31 09:36] LABS: Alanine Aminotransferase 91 IU/L (<35); Albumin 4.1 g/dL (3.5-5.0); Albumin Globulin Ratio 1.2 (1.0-2.8); Alkaline Phosphatase 70 U/L (38-126); Aspartate Aminotransferase 88 IU/L (14-36); BUN Creatinine Ratio 21.8 (6-22); Bilirubin Total 0.2 mg/dL (0.2-1.3); Blood Urea Nitrogen 12 mg/dL (7-17); Calcium 8.9 mg/dL (8.4-10.2); Carbon Dioxide 26 mmol/L (22-32); Chloride 104 mmol/L (98-107); Estimated Glomerular Filt Rate > 60 mL/min (>60); Globulin 3.4 g/dL (1.7-4.1); Glucose 122 mg/dL (70-100); HEMOLYSIS < 15 (0-50); Potassium 4.1 mmol/L (3.4-5.1); Sodium 136 mmol/L (137-145); Total Protein 7.5 g/dL (6.3-8.2); Uric Acid 5.6 mg/dL (2.5-6.2)
== END ==
PROVIDERS: PCP Family Medicine; Referring Provider Family Medicine; Visit Provider Family Medicine
DX: E66.9 Obesity, unspecified (principal); K76.0 Fatty (change of) liver, not elsewhere classified; M10.9 Gout, unspecified
CPT/HCPCS: 36415; 80053; 84550

== ENCOUNTER → 2023-07-18 08:42 | Outpatient (CLI) | payer OTHER, SELFPAY | PROVIDERS: PCP Family Medicine; Referring Provider Family Medicine; Visit Provider Family Medicine | DX: J45.909 Unspecified asthma, uncomplicated (principal); G47.33 Obstructive sleep apnea (adult) (pediatric) | CPT/HCPCS: 94060; 94726; 94729 ==

== ENCOUNTER → 2023-09-19 08:10 | Outpatient (CLI) | payer OTHER, SELFPAY ==
[2023-09-19 08:57] LABS: Add Manual Diff / Slide Review NO; Basophils Absolute Auto 100 /uL (0-100); Basophils Percent Auto 1.1 % (0-2); Eosinophils Absolute Auto 400 /uL (0-450); Eosinophils Percent Auto 4.3 % (2-4); Hematocrit 44.1 % (36-46); Hemoglobin 14.7 g/dL (12.0-16.0); Lymphocytes Absolute Auto 2200 /uL (1100-4500); Lymphocytes Percent Auto 25.3 % (25-40); Mean Corpuscular HGB Conc 33.4 % (30-36); Mean Corpuscular Hemoglobin 29.7 PG (26-34); Mean Corpuscular Volume 89.1 fL (80-100); Monocytes Absolute Auto 900 /uL (0-900); Monocytes Percent Auto 10.5 % (3-14); Neutrophils Absolute Auto 5000 /uL (1500-7000); Neutrophils Percent Auto 58.8 % (50-75); Platelet Count 296 X10^3/uL (150-400); Red Blood Cell Count 4.95 X10^6/uL (4.0-5.2); Red Cell Distribution Width 12.3 % (11.6-14.8); White Blood Cell Count 8.6 X10^3/uL (4.5-11.0)
[2023-09-19 09:07] LABS: Hemoglobin A1C% w Est Avg Glu 5.5 % (4.0-6.0)
[2023-09-19 09:16] LABS: Alanine Aminotransferase 44 IU/L (<35); Albumin 4.5 g/dL (3.5-5.0); Albumin Globulin Ratio 1.2 (1.0-2.8); Alkaline Phosphatase 64 U/L (38-126); Aspartate Aminotransferase 53 IU/L (14-36); BUN Creatinine Ratio 22.2 (6-22); Bilirubin Total 0.7 mg/dL (0.2-1.3); Blood Urea Nitrogen 14 mg/dL (7-17); Calcium 9.3 mg/dL (8.4-10.2); Carbon Dioxide 20 mmol/L (22-32); Chloride 106 mmol/L (98-107); Estimated Glomerular Filt Rate > 60 mL/min (>60); Globulin 3.7 g/dL (1.7-4.1); Glucose 93 mg/dL (70-100); HEMOLYSIS < 15 (0-50); Potassium 4.2 mmol/L (3.4-5.1); Sodium 138 mmol/L (137-145); Total Protein 8.2 g/dL (6.3-8.2)
[2023-09-19 09:45] LABS: TSH w/ Reflex to FT4 2.64 uIU/mL (0.47-4.68)
== END ==
LOC: LAB 08:10
PROVIDERS: PCP Family Medicine; Referring Provider Family Medicine; Visit Provider Family Medicine
DX: J45.909 Unspecified asthma, uncomplicated (principal); E11.9 Type 2 diabetes mellitus without complications; E66.9 Obesity, unspecified; R74.01 Elevation of levels of liver transaminase levels; K76.0 Fatty (change of) liver, not elsewhere classified; M10.9 Gout, unspecified
CPT/HCPCS: 36415; 80053; 83036; 84443; 85025

== ENCOUNTER → 2024-04-16 07:29 | Outpatient (CLI) | payer OTHER, SELFPAY ==
--- NOTE | 2024-04-16 07:31 | DI.MG.S_ITS ---
BILATERAL DIGITAL SCREENING MAMMOGRAM 3D/2D WITH CAD: 04/16/2024 CLINICAL: Routine screening. Comparison is made to exams dated: 01/24/2023 mammogram, 09/05/2021 mammogram, and 08/11/2020 mammogram - [facility]. The breasts are heterogeneously dense, which may obscure small masses (category c / 51-75% glandular tissue). Current study was also evaluated with a Computer Aided Detection (CAD) system. No significant masses, calcifications, or other findings are seen in either breast. There has been no significant interval change. IMPRESSION: NEGATIVE There is no mammographic evidence of malignancy. A 1 year screening mammogram is recommended. Based on the Tyrer Cuzick model (a risk assessment model) the patient's lifetime risk is 13.3% and her 10 year risk is 2.9%. According to the ACR, ACS, and NCCN guidelines, an annual breast MRI exam along with mammogram is recommended if the patient's lifetime risk is 20% or greater. This exam was interpreted at Station ID: [id number]. NOTE: For mammograms, a report in lay terms will be sent to the patient. Approximately 15% of breast malignancies will not be visualized mammographically. In the management of a palpable breast mass, a negative mammogram must not discourage biopsy of a clinically suspicious lesion. Electronically Signed By: Brenna Levi M.D., Ph.D. juany/estrellita:04/16/2024 09:33:44 letter sent: Normal Exam ACR BI-RADS Category 1: Negative 3341F
[2024-04-16 08:33] LABS: Alanine Aminotransferase 64 IU/L (<35); Albumin 4.1 g/dL (3.5-5.0); Albumin Globulin Ratio 1.2 (1.0-2.8); Alkaline Phosphatase 82 U/L (38-126); Aspartate Aminotransferase 77 IU/L (14-36); BUN Creatinine Ratio 25.9 (6-22); Bilirubin Total 0.6 mg/dL (0.2-1.3); Blood Urea Nitrogen 15 mg/dL (7-17); Calcium 9.3 mg/dL (8.4-10.2); Carbon Dioxide 24 mmol/L (22-32); Chloride 103 mmol/L (98-107); Cholesterol 143 mg/dL (140-199); Estimated Glomerular Filt Rate > 60 mL/min (>60); Globulin 3.3 g/dL (1.7-4.1); Glucose 118 mg/dL (70-100); HDL Cholesterol 43 mg/dL (40-60); HEMOLYSIS < 15 (0-50); LDL Cholesterol Calculated 53 mg/dL (<100); Potassium 4.4 mmol/L (3.4-5.1); Sodium 134 mmol/L (137-145); Total Protein 7.4 g/dL (6.3-8.2); Triglycerides 237 mg/dL (35-150)
[2024-04-16 08:37] LABS: High Sensitivity CRP - Cardiac 1.4 mg/L (1.0-3.0)
[2024-04-16 08:50] LABS: Hemoglobin A1C% w Est Avg Glu 5.9 % (4.0-6.0)
[2024-04-16 09:30] LABS: Protein (Total) Urine Random 61 mg/dL (0-12)
[2024-04-16 09:34] LABS: Creatinine Urine Random 36.08 mg/dL; Protein Creatinine Ratio Urine 1.69 GRAM/24H
== END ==
LOC: MAMMO 07:30
PROVIDERS: PCP Family Medicine; Referring Provider Family Medicine; Visit Provider Family Medicine
DX: Z12.31 Encounter for screening mammogram for malignant neoplasm of breast (principal); R92.333 Mammographic heterogeneous density, bilateral breasts; R74.01 Elevation of levels of liver transaminase levels; E11.9 Type 2 diabetes mellitus without complications; E78.2 Mixed hyperlipidemia; F39 Unspecified mood [affective] disorder; K76.0 Fatty (change of) liver, not elsewhere classified
CPT/HCPCS: 36415; 77063; 77067; 80053; 80061; 82570; 83036; 84156; 86140

== ENCOUNTER → 2024-10-08 07:41 | Outpatient (CLI) | payer OTHER, SELFPAY ==
[2024-10-08 08:36] LABS: Hematocrit 39.8 % (36-46); Hemoglobin 12.7 g/dL (12.0-16.0); Mean Corpuscular Hemoglobin 25.7 PG (26-34); Mean Corpuscular Volume 80.4 fL (80-100); Platelet Count 374 X10^3/uL (150-400); Red Blood Cell Count 4.95 X10^6/uL (4.0-5.2)
[2024-10-08 08:45] LABS: Hemoglobin A1C% w Est Avg Glu 5.2 % (4.0-6.0)
[2024-10-08 08:48] LABS: Alanine Aminotransferase 55 IU/L (<35); Albumin 4.7 g/dL (3.5-5.0); Albumin Globulin Ratio 1.4 (1.0-2.8); Alkaline Phosphatase 68 U/L (38-126); Aspartate Aminotransferase 66 IU/L (14-36); BUN Creatinine Ratio 21.9 (6-22); Bilirubin Total 0.5 mg/dL (0.2-1.3); Blood Urea Nitrogen 14 mg/dL (7-17); Calcium 9.2 mg/dL (8.4-10.2); Carbon Dioxide 22 mmol/L (22-32); Chloride 103 mmol/L (98-107); Cholesterol 111 mg/dL (140-199); Estimated Glomerular Filt Rate > 60 mL/min (>60); Globulin 3.4 g/dL (1.7-4.1); Glucose 92 mg/dL (70-100); HDL Cholesterol 43 mg/dL (40-60); HEMOLYSIS < 15 (0-50); LDL Cholesterol Calculated 46 mg/dL (<100); Potassium 4.6 mmol/L (3.4-5.1); Sodium 137 mmol/L (137-145); Total Protein 8.1 g/dL (6.3-8.2); Triglycerides 108 mg/dL (35-150); Uric Acid 5.2 mg/dL (2.5-6.2)
[2024-10-08 09:04] LABS: Vitamin D 25 Hydroxy (D3) 38.5 ng/mL (30.0-100.0)
[2024-10-09 04:09] LABS: CRP, High Sensitivity 0.94 mg/L (0.00-3.00)
[2024-10-11 11:09] LABS: Insulin Level Total 10.2 uIU/mL (2.6-24.9)
== END ==
PROVIDERS: PCP Family Medicine; Referring Provider Family Medicine; Visit Provider Family Medicine
DX: Z00.00 Encounter for general adult medical examination without abnormal findings (principal); E66.9 Obesity, unspecified; E55.9 Vitamin D deficiency, unspecified; E11.9 Type 2 diabetes mellitus without complications; R74.01 Elevation of levels of liver transaminase levels; J45.909 Unspecified asthma, uncomplicated; M10.9 Gout, unspecified; E88.810 Metabolic syndrome
CPT/HCPCS: 36415; 80053; 80061; 82306; 83036; 83525; 84443; 84550; 85027; 86140

== ENCOUNTER → 2024-12-31 07:15 | Outpatient (CLI) | payer OTHER, SELFPAY ==
[2024-12-31 08:57] LABS: Alanine Aminotransferase 41 IU/L (<35); Albumin 4.5 g/dL (3.5-5.0); Albumin Globulin Ratio 1.5 (1.0-2.8); Alkaline Phosphatase 73 U/L (38-126); Aspartate Aminotransferase 50 IU/L (14-36); BUN Creatinine Ratio 25.5 (6-22); Bilirubin Total 0.4 mg/dL (0.2-1.3); Blood Urea Nitrogen 14 mg/dL (7-17); Calcium 9.3 mg/dL (8.4-10.2); Carbon Dioxide 21 mmol/L (22-32); Chloride 104 mmol/L (98-107); Cholesterol 111 mg/dL (140-199); Estimated Glomerular Filt Rate > 60 mL/min (>60); Globulin 3.1 g/dL (1.7-4.1); Glucose 109 mg/dL (70-99); HDL Cholesterol 48 mg/dL (40-60); HEMOLYSIS < 15 (0-50); LDL Cholesterol Calculated 35 mg/dL (<100); Potassium 4.7 mmol/L (3.4-5.1); Sodium 137 mmol/L (137-145); Total Protein 7.6 g/dL (6.3-8.2); Triglycerides 138 mg/dL (35-150)
== END ==
PROVIDERS: PCP Family Medicine; Referring Provider Family Medicine; Visit Provider Family Medicine
DX: E11.9 Type 2 diabetes mellitus without complications (principal); K76.0 Fatty (change of) liver, not elsewhere classified; E78.2 Mixed hyperlipidemia
CPT/HCPCS: 36415; 80053; 80061

== ENCOUNTER → 2025-07-16 07:32 | Outpatient (CLI) | payer OTHER, SELFPAY ==
[2025-07-16 10:27] LABS: Alanine Aminotransferase 66 IU/L (<35); Albumin 4.7 g/dL (3.5-5.0); Albumin Globulin Ratio 1.4 (1.0-2.8); Alkaline Phosphatase 80 U/L (38-126); Blood Urea Nitrogen 12 mg/dL (7-17); Calcium 9.1 mg/dL (8.4-10.2); Carbon Dioxide 22 mmol/L (22-32); Chloride 102 mmol/L (98-107); Cholesterol 117 mg/dL (140-199); Estimated Glomerular Filt Rate > 60 mL/min (>60); Globulin 3.3 g/dL (1.7-4.1); Glucose 89 mg/dL (70-99); HDL Cholesterol 50 mg/dL (40-60); HEMOLYSIS < 15 (0-50); Potassium 4.7 mmol/L (3.4-5.1); Sodium 136 mmol/L (137-145); Total Protein 8.0 g/dL (6.3-8.2); Triglycerides 130 mg/dL (35-150)
[2025-07-16 13:08] LABS: Hemoglobin A1C% w Est Avg Glu 5.7 % (4.0-6.0)
== END ==
PROVIDERS: PCP Family Medicine; Referring Provider Family Medicine; Visit Provider Family Medicine
DX: E11.9 Type 2 diabetes mellitus without complications (principal); K76.0 Fatty (change of) liver, not elsewhere classified; E78.2 Mixed hyperlipidemia
CPT/HCPCS: 36415; 80053; 80061; 83036